=== PATIENT | female | born 1935 | race Caucasian/White ===

== ENCOUNTER 2019-08-14 10:30 | Outpatient (CLI) | payer MEDICARE, OTHER ==
[~2019-08-14] VITALS: Ht 152.4 cm; Wt 56.7 kg
[2019-08-14 10:50] VITALS: BP 159/66
[2019-08-14 15:28] VITALS: BP 159/66
--- NOTE | 2019-08-14 20:00 | Consultation ---
DATE OF CONSULTATION: 08/14/2019 CHIEF COMPLAINT: Abdominal pain. HISTORY OF PRESENT ILLNESS: This is an 84-year-old female with multiple medical problems, which I will dictate in a second, who was referred to us by Dr. Bonner for evaluation of abdominal pain. According to the patient, this is going on for about three weeks, diffuse abdominal pain. No nausea. No vomiting. No dysphagia. No odynophagia. No melena. The patient also complained of new-onset constipation for the last three weeks or so, which [id number]-[id number] medication is not helping her. No melena. No hematochezia. Last endoscopy and colonoscopy over 5 years ago. No weight loss. No loss of appetite. A lot of gas and bloating. PAST MEDICAL HISTORY: 1. Hypertension. 2. Hypercholesterolemia. 3. Hypothyroidism. 4. Coronary artery disease. 5. Multiple pneumonias. PAST SURGICAL HISTORY: 1. Pacemaker placement. 2. Cholecystectomy. 3. Knee surgeries. MEDICATIONS: Please see medication reconciliation list. ALLERGIES: No known drug allergies. FAMILY HISTORY: Noncontributory. SOCIAL HISTORY: No recent history of tobacco, alcohol, or IV drug abuse. REVIEW OF SYSTEMS: Positive for abdominal pain and bloating. PHYSICAL EXAMINATION: VITAL SIGNS: Temperature is 97, blood pressure is 159/66, pulse is 60, respirations 20. HEENT: Normocephalic and atraumatic. Sclerae anicteric. NECK: Supple. No evidence of obvious lymphadenopathy. CARDIOVASCULAR: Regular rate and rhythm. Plus S1, S2. LUNGS: Clear to auscultation bilaterally. ABDOMEN: Soft. Bowel sounds are hyperactive. There is tenderness to palpation in the epigastric, right upper quadrant, right lower quadrant, and suprapubic area. EXTREMITIES: No cyanosis. No clubbing. No edema. ASSESSMENT AND PLAN: This is an 84-year-old female with diffuse abdominal pain with associated constipation, bloating, and gas. According to her, she had an x-ray done by primary care physician and she was told everything was okay. She also had abdominal x-rays; according to her, she was told everything was okay. Our plan will be to treat with Xifaxan for possible SIBO given these hyperactive bowel sounds, lot of gas, and bloating. Also, we are planning to give the patient Linzess 145 one tablet p.o. daily for treatment of constipation. The patient was told to come back in two weeks in the office. At that point, we will consider doing endoscopy and colonoscopy if her symptoms are persistent. I want to thank, Dr. Bonner for this kind referral. Jamin Neal M.D. DR: Heri JOB#: [id number] CC: Dr. Bonner
== END 2019-08-14 15:49 | disposition home or self-care (01) ==
LOC: PAN 10:30
DX: R10.9 Unspecified abdominal pain (principal); I10 Essential (primary) hypertension; E78.00 Pure hypercholesterolemia, unspecified; E03.9 Hypothyroidism, unspecified; I25.10 Atherosclerotic heart disease of native coronary artery without angina pectoris; Z90.49 Acquired absence of other specified parts of digestive tract; Z95.0 Presence of cardiac pacemaker; R14.0 Abdominal distension (gaseous); K59.00 Constipation, unspecified
CPT/HCPCS: G0463

== ENCOUNTER 2019-09-03 13:23 | Outpatient (CLI) | payer MEDICARE, OTHER ==
--- NOTE | 2019-09-03 14:38 | General Progress Note ---
Assessment/Plan Assessment/Plan: 1. Hypertension. 2. Hypercholesterolemia. 3. Hypothyroidism. 4. Coronary artery disease. 5. Multiple pneumonias. plan EGd and colonoscopy Subjective ROS Limited/Unobtainable: Yes Allergies: Coded Allergies: No Known Allergies (Unverified , 08/15/19) Objective General Appearance: alert EENT: normal ENT inspection Neck: supple Cardiovascular: normal rate Respiratory/Chest: decreased breath sounds Abdomen: normal bowel sounds, non tender, soft Extremities: non-tender Jmain Neal MD Sep 03, 2019 14:38
[2019-09-03] MEDS ORDERED: [UNRECOGNIZED DRUG - REMARK] (15:15)
[2019-09-03 15:16] VITALS: BP 135/71
== END 2019-09-03 15:23 | disposition home or self-care (01) ==
LOC: PAN 13:23
DX: E78.00 Pure hypercholesterolemia, unspecified (principal); E03.9 Hypothyroidism, unspecified; I11.9 Hypertensive heart disease without heart failure; I25.10 Atherosclerotic heart disease of native coronary artery without angina pectoris

== ENCOUNTER → 2019-09-05 | Outpatient (CLI) | payer MEDICARE, OTHER ==
[~2019-09-05] MED LIST: DICYCLOMINE HCL10 MG ORAL; DICYCLOMINE HCL20 M1 PO; DILTIAZEM 24HR180 M1 ORAL; DONEPEZIL HCL10 M2 ORAL; LEVOTHYROXINE100 MC1 IV; LOSARTAN POTASS50 MG ORAL; SIMVASTATIN40 MG ORAL; ZETIA10 MG ORAL; [UNRECOGNIZED DRUG - REMARK]
--- NOTE | 2019-09-05 14:07 | Diagnostic Imaging Report ---
Indication: Dominant pain Technique: CT of the abdomen and pelvis utilizing automated exposure control with intravenous contrast. Venous scanning performed. Axial, sagittal and coronal reformats presented. CT dose: Total DLP 188.6 mGycm; CTDI vol 3.9 mGy Comparison: None Findings: Partially imaged heart appears enlarged. Pacemaker/AICD leads are partially visualized. There are mild dependent atelectatic changes in the lung bases. Partially imaged breast tissue appears grossly symmetric. Hepatic contour is smooth. No focal hepatic mass lesion noted on this single phase exam. Hepatic veins and portal veins appear patent. The patient is status post cholecystectomy. There is now prominence of the common bile duct which is likely related to postcholecystectomy state. No intrahepatic biliary ductal dilatation. Spleen, adrenal glands and pancreas grossly unremarkable. No peripancreatic inflammatory changes or fluid collections. Multiple cysts are noted within the bilateral kidney. Largest is located in the upper pole the right kidney and measures approximately 6.5 cm in diameter. There is no hydronephrosis or perinephric stranding bilaterally. The patient is status post hysterectomy. Bladder is unremarkable allowing for degree of underdistention. There is no free intraperitoneal air or fluid. There is no evidence of small bowel obstruction. There is mild colonic diverticulosis. No evidence to suggest acute diverticulitis. There is long segment wall thickening versus underdistention involving the distal sigmoid colon. There is apparent wall thickening involving the distal stomach/pylorus. There is no pathologically enlarged lymphadenopathy. Abdominal aorta is normal in caliber. There are overall mild to moderate atherosclerotic vascular calcifications. Small bilateral fat-containing inguinal hernias are noted. There is a tiny fat-containing umbilical hernia. There are multilevel degenerative changes of the spine. No acute fracture is identified. IMPRESSION: * Apparent wall thickening involving the distal stomach/pylorus. This may related to underdistention or gastritis. Additional etiologies for wall thickening (including neoplastic etiologies) not excluded. Consider correlation with endoscopy. * Underdistention versus segmental wall thickening of the rectosigmoid colon. Consider correlation with colonoscopy. No pericolonic inflammatory changes. * No evidence of small bowel obstruction or definite inflammatory stranding within the mesentery. * Mild colonic diverticulosis. No evidence of acute diverticulitis. * Status post cholecystectomy and hysterectomy * Cardiomegaly and pacer/ICD leads partially visualized. * Multiple bilateral renal cysts. The CT scanner at [facility] is accredited by the [employer] and the scans are performed using protocols designed to limit radiation exposure to as low as reasonably achievable to attain images of sufficient resolution adequate for diagnostic evaluation.
== END | disposition home or self-care (01) ==
LOC: CAT 12:00
DX: R10.9 Unspecified abdominal pain (principal)
CPT/HCPCS: 74177; Q9967

== ENCOUNTER → 2019-09-19 | Day surgery (SDC) | payer MEDICARE, OTHER ==
[~2019-09-19] VITALS: Ht 160 cm; Wt 56.7 kg
[2019-09-19] VITALS (7 sets, daily range): BP systolic 137–176; BP diastolic 59–71
[~2019-09-19] MED LIST changes: +Atropine Inj 1mg/10ml Syr IV PRN; +DiphenhydrAMINE 50mg/ml Inj IVP PRN; +LR 1000ml 1,000 ML IVLG SCH; +LR 1000ml ONE; +Lidocaine 1% MPF 10mg/ml 5ml ONE; +Midazolam 2mg/2ml Inj IVP PRN; +Propofol 200mg/20ml IV ONE; +fentaNYL 100 mcg/2 mL IV PRN
--- NOTE | 2019-09-19 09:49 | Pre-Procedure Note/Attestation ---
Pre-Procedure Note/Attestation Complete Prior to Procedure Planned Procedure: not applicable Procedure Narrative: eus Indications for Procedure Pre-Operative Diagnosis: abd pain and weight loss Attestation I attest that I discussed the nature of the procedure; its benefits; risks and complications; and alternatives (and the risks and benefits of such alternatives ), prior to the procedure, with the patient (or the patient's legal account services representative). I attest that, if there was a reasonable possibility of needing a blood transfusion, the patient (or the patient's legal account services representative) was given the [facility] standardized written summary, pursuant to the [place] Blood Safety Act ([place] Health and Safety Code # 1645, as amended). I attest that I re-evaluated the patient just prior to the surgery and that there has been no change in the patient's H&P, except as documented below: Jamin Neal MD Sep 19, 2019 09:49
--- NOTE | 2019-09-19 09:51 | Short Stay Surgery H&P ---
History of Present Illness History of Present Illness Chief Complaint abd pain and weight loss HPI Gifty Quiñonez is a 84 year old female who was admitted on for Abdominal Pain Patient History Allergies: Coded Allergies: No Known Allergies (Unverified , 08/15/19) PAST MEDICAL HISTORY: (1) Abdominal pain (2) Gastritis (3) Constipation Medication History Scheduled Dicyclomine Hcl (Dicyclomine Hcl), 20 MG PO BID, (Reported) Dicyclomine Hcl* (Dicyclomine Hcl*), 10 MG ORAL Q8HR, (Reported) Diltiazem Hcl (Diltiazem 24HR Er), 180 MG ORAL DAILY, (Reported) Donepezil Hcl* (Donepezil Hcl*), 10 MG ORAL DAILY, (Reported) Ezetimibe (Zetia*), 10 MG ORAL BEDTIME, (Reported) Levothyroxine Sodium* (Levothyroxine Sodium*), 50 MCG IV DAILY, (Reported) Losartan Potassium* (Losartan Potassium*), 50 MG ORAL DAILY, (Reported) Simvastatin (Zocor), 40 MG ORAL BEDTIME, (Reported) Review of Systems Cardiovascular: Reports: no symptoms Respiratory: Reports: no symptoms Skeletal: Reports: no symptoms Gastrointestinal: Reports: see HPI Genitourinary: Reports: no symptoms Neurologic: Reports: no symptoms Endocrine: Reports: no symptoms Physical Exam Vital Signs Last Vital Signs Date Time Temp Pulse Resp B/P (MAP) Pulse Ox O2 Delivery O2 Flow Rate FiO2 09/19/19 09:15 97.7 60 18 137/59 97 Room Air Skin: normal HENT: normal Heart: normal Lungs: normal Abdomen: normal Extremities: normal Plan Plan of Care EUS Attestation Are the patient's medical conditions optimized for surgery? Attestation Response: yes Jamin Neal MD Sep 19, 2019 09:51
--- NOTE | 2019-09-19 10:22 | Endoscopy Procedure Note ---
Endoscopy Procedure Note General Indication for Procedure: abd pain and weight loss Procedures Performed: other - EUS Operative Findings/Diagnosis: panc cyst Specimen: yes Pt Tolerated Procedure Well: Yes Estimated Blood Loss: none Anesthesia Anesthesiologist: mark Anesthesia: MAC Inserted Devices Implant(s) used?: No GI Core Measures 50 yrs or older w/o bx or poly: Not Applicable 10yrs. F/U recommended: Not Applicable Jamin Neal MD Sep 19, 2019 10:22
--- NOTE | 2019-09-19 10:38 | Anethesia Preoperative Eval ---
Anesthesia Pre-op PMH/ROS General Date of Evaluation: Sep 19, 2019 Time of Evaluation: 09:35 Anesthesiologist: sahil ASA Score: ASA 4 Mallampati Score Class I : Soft palate, uvula, fauces, pillars visible Class II: Soft palate, uvula, fauces visible Class III: Soft palate, base of uvula visible Class IV: Only hard plate visible Mallampati Classification: Class II Surgeon: ilsa Diagnosis: abdominal pain Surgical Procedure: eus Anesthesia History: none Social History: smoking - nonsmoker Family History: no anesthesia problems Allergies: Coded Allergies: No Known Allergies (Unverified , 08/15/19) Medications: see eMAR Patient NPO?: Yes Past Medical History Cardiovascular: Reports: HTN, CAD, other - pacemaker Pulmonary: Reports: other - pneumonia Endocrine: Reports: DM, hypothyroidism Anesthesia Pre-op Phys. Exam Physician Exam Last Vital Signs Date Time Temp Pulse Resp B/P (MAP) Pulse Ox O2 Delivery O2 Flow Rate FiO2 09/19/19 09:15 97.7 60 18 137/59 97 Room Air Constitutional: NAD Neurologic: CN 2-12 intact Cardiovascular: other - paced, bradycardia Respiratory: CTA Gastrointestinal: S/NT/ND Airway Exam Mallampati Score: Class II MO: limited Neck: flexible TMD: 2fb ROM: limited Anesthesia Pre-op A/P Labs Accucheck 97 Risk Assessment & Plan Assessment: asa4 Plan: mac Status Change Before Surgery: No Pre-Antibiotics Drug: Michelle Red MD Sep 19, 2019 10:38
--- NOTE | 2019-09-19 10:41 | Immediate Post-Op Evaluation ---
Immediate Post-Op Evalulation Immediate Post-Op Evalulation Procedure: egd/eus Date of Evaluation: Sep 19, 2019 Time of Evaluation: 10:42 IV Fluids: 200ml lr Blood Products: none Estimated Blood Loss: negligible Blood Pressure Systolic: 161 Blood Pressure Diastolic: 92 Pulse Rate: 60 Respiratory Rate: 18 O2 Sat by Pulse Oximetry: 99 Temperature (Fahrenheit): 97.0 Pain Score (1-10): 0 Nausea: No Vomiting: No Complications none Patient Status: awake, reacts, patent Hydration Status: adequate Drug: Michelle Red MD Sep 19, 2019 10:41
--- NOTE | 2019-09-19 10:44 | 48 Hour Post Anesthesia Eval ---
Post Anesthesia Evaluation Procedure: egd/eus Date of Evaluation: Sep 19, 2019 Time of Evaluation: 10:44 Blood Pressure Systolic: 164 0: 68 Pulse Rate: 60 Respiratory Rate: 18 Temperature (Fahrenheit): 97.0 O2 Sat by Pulse Oximetry: 100 Airway: patent Nausea: No Vomiting: No Pain Intensity: 0 Hydration Status: adequate Cardiopulmonary Status: stable Mental Status/LOC: patient returned to baseline Post-Anesthesia Complications: none Follow-up care needed: N/A Michelle Gao MD Sep 19, 2019 10:44
--- NOTE | 2019-09-19 19:14 | Procedure Note ---
DATE OF PROCEDURE: 09/19/2019 SURGEON: Jamin Neal MD. REFERRING PHYSICIAN: Dr. Bee. PROCEDURE: EUS. ANESTHESIA: Per Dr. Streeter. INSTRUMENT: Olympus adult flexible upper EUS. INDICATION: Weight loss, abdominal pain, rule out pancreatic mass. The procedure, risks, benefits, and possible consequences, including hemorrhage, aspiration, perforation and infection, and alternative treatments, were explained to the patient/legal guardian by Dr. Jamin Neal and the patient/legal guardian understood and accepted these risks. PROCEDURE IN DETAIL: After informed consent was obtained and the patient was adequately sedated, EUS scope was advanced from the mouth to second portion of the duodenum and pancreatic parenchyma was carefully examined through gastroduodenal mucosa. Starting scanning at GE junction, first left adrenal gland was seen without any obvious pathology in it. No adenoma. No evidence of any celiac axis lymphadenopathy. There was a small simple-looking cyst of about 5 mm in the body of the pancreas. No evidence of any obvious pancreatitis. No obvious pancreatic mass was seen in the body or tail. Then, the scope was advanced to the duodenal bulb and second portion of the duodenum. The patient has history of cholecystectomy. Common bile duct measured 5 mm without any filling defect in it. Pancreatic head was kind of shrunken, but there was no obvious mass seen. The patient tolerated the procedure very well without any complication. SUMMARY OF FINDINGS: 1. A 5 mm pancreatic cyst in the body of the pancreas, simple-looking cyst. 2. Common bile duct of 5 mm. 3. History of cholecystectomy. 4. Small atrophic pancreatic head without any obvious mass. RECOMMENDATIONS: We recommend to start the patient on Creon 2 tablets p.o. t.i.d. with meals. Add for better constipation control. The patient to follow in the office. If the patient is still symptomatic, we will consider doing abdominal MRI. I want to thank, Dr. Bee, for this kind referral. Jamin Neal M.D. DR: [place] JOB#: [id number] CC: Dr. Bee
== END | disposition home or self-care (01) ==
LOC: GAS 08:20
DX: K86.2 Cyst of pancreas (principal); R63.4 Abnormal weight loss; R10.9 Unspecified abdominal pain; Z90.49 Acquired absence of other specified parts of digestive tract; Z68.22 Body mass index [BMI] 22.0-22.9, adult; Z79.899 Other long term (current) drug therapy; Z95.0 Presence of cardiac pacemaker; I11.9 Hypertensive heart disease without heart failure; I25.10 Atherosclerotic heart disease of native coronary artery without angina pectoris; E11.9 Type 2 diabetes mellitus without complications; E03.9 Hypothyroidism, unspecified; R00.1 Bradycardia, unspecified
CPT/HCPCS: 43231; 93005; 94003; J0360; J2704; J7120; 94150